=== PATIENT | male | born 1995 | race Caucasian/White ===

== ENCOUNTER 2017-05-06 15:16 | Emergency (ER) | payer BC ==
[2017-05-06 15:24] VITALS: BP 146/79
[2017-05-06] MEDS ORDERED: TORADOL 30 MG VIAL ONE (15:36)
[2017-05-06] MEDS ORDERED: TORADOL 30 MG VIAL IVP ONE (15:36)
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
--- NOTE | 2017-05-06 16:05 | RAD ---
Examination: Left clavicle, two views History: Trauma Findings: There is an acute fracture of the middle 3rd of the left clavicle. The lateral fragment is displaced caudally by a full bones width. There is minimal angulation convex cephalad, with 2.5 cm ov erriding of fragments. The acromioclavicular and sternoclavicular joints appear intact. Impression: Displaced and deforming fracture left clavicle. Reported By:
== END 2017-05-06 16:30 | disposition home or self-care (01) ==
LOC: ER 15:16
DX: S42.022A Displaced fracture of shaft of left clavicle, initial encounter for closed fracture (principal); X58.XXXA Exposure to other specified factors, initial encounter; Y92.9 Unspecified place or not applicable
CPT/HCPCS: 73000; 96365; 96374; 99282; A4222; J1885